=== PATIENT | male | born 1935 | race Caucasian/White ===

== ENCOUNTER 2019-03-18 12:59 | Emergency (ER) | payer MEDICARE ==
[~2019-03-18 12:59] MED LIST: Sodium Chloride 0.9% 1,000 ML BAG ONE
[2019-03-18] MEDS ORDERED: Ondansetron PF 4 MG/2 ML Vial ONE (13:35)
[2019-03-18] MEDS ORDERED: Sodium Chloride 0.9% 1,000 ML ONE ×2 (13:35→15:07)
[2019-03-18 13:49] LABS: ALT (SGPT) 102 U/L (8-55); AST (SGOT) 72 U/L (5-34); Albumin 3.6 g/dL (3.4-4.8); Alkaline Phosphatase 157 U/L (40-110); Anion Gap 19 mmol/L (10-20); BUN (Urea Nitrogen) 36 mg/dL (8.4-25.7); Bilirubin, Total 3.4 mg/dL (0.2-1.2); CK (CPK) 42 U/L (30-200); Calc. Creatinine Clearance 0 mL/min (70-130); Calcium 9.1 mg/dL (7.8-10.44); Carbon Dioxide 23 mmol/L (23-31); Chloride 97 mmol/L (98-107); Estimated GFR-MDRD 21; Globulin 2.3 g/dL (2.4-3.5); Glucose 201 mg/dL (83-110); Hemoglobin 14.3 g/dL (14.0-18.0); Lipase 45 U/L (8-78); Protein, Total 5.9 g/dL (5.8-8.1); Sodium 135 mmol/L (136-145); White Blood Cell (WBC) Count 14.6 thou/uL (4.8-10.8)
[2019-03-18 13:50] LABS: #Basophils 0.1 thou/uL (0.0-0.2); #Eosinphils 0.1 thou/uL (0.0-0.7); #Lymphocytes 1.5 thou/uL (1.20-3.40); #Monocytes 0.9 thou/uL (0.11-0.59); %Basophils 0.8 % (0.0-1.0); %Eosinophils 0.5 % (0.0-10.0); %Monocytes 6.5 % (0.0-10.0); %Neutrophils 82.3 % (42.0-75.0); Mean Corpuscular HGB CONC 30.8 g/dL (32.0-36.0); Mean Corpuscular Hemoglobin 26.9 pg (27.0-31.0); Mean Corpuscular Volume 87.3 fL (78.0-98.0); Mean Platelet Volume 10.7 fL (7.4-10.4); Platelet Count 196 thou/uL (130-400)
[2019-03-18 13:56] LABS: Phosphorus 4.1 mg/dL (2.3-4.7)
[2019-03-18 14:07] LABS: CKMB 4.4 ng/mL (0-6.6)
[2019-03-18 14:10] LABS: Schistocytes MODERATE= 6-15 cells (100X) (0-1/hpf)
[2019-03-18 14:11] LABS: Anisocytosis SLIGHT = 6-15 cells (100X) (0-5/hpf); Ovalocytes MODERATE= 6-15 cells (100X) (0-1/hpf); Platelet Morphology Comment Appears Adequate; Poikilocytosis MARKED = >30 cells (100X) (0-5/hpf)
[2019-03-18] MEDS ORDERED: Vancomycin HCl 500 MG VIAL ONE (14:11)
[2019-03-18] MEDS ORDERED: Vancomycin HCl 750 MG VIAL ONE (14:11)
[2019-03-18] MEDS ORDERED: Piperacillin/Tazobactam 4.5 GM VIAL ONE (14:11)
[2019-03-18] MEDS ORDERED: Sodium Chloride 0.9% 250 ML 250 ML ONE (14:11)
[2019-03-18] MEDS ORDERED: Sodium Chloride 0.9% 100 ML ONE (14:11)
--- NOTE | 2019-03-18 14:25 | CT ---
CT BRAIN WITHOUT CONTRAST: HISTORY:Altered mental status COMPARISON:None FINDINGS: There are foci of decreased attenuation in the periventricular white matter, consistent with chronic small vessel ischemic disease. Changes of cortical atrophy are present. No evidence of acute infarct, hemorrhage, midline shift or abnormal extra-axial fluid collections is seen. The ventricular size is appropriate and the basilar cisterns are patent. The bony calvarium is intact. The visualized paranasal sinuses and mastoid air cells are well aerated. There is a 4 cm extra-axial mass in the right frontal region, likely meningioma. Confirmation with co ntrast-enhanced MRI would be helpful. IMPRESSION: No CT evidence of acute intracranial process.
--- NOTE | 2019-03-18 14:29 | CT ---
CT Abdomen Pelvis WO Con: 03/18/2019 1:32 PM HISTORY: Weakness with nausea and vomiting COMPARISON: None. TECHNIQUE: Multiple contiguous axial images were obtained and a CT of the abdomen and pelvis without IV contrast . Coronal and sagittal reformats were performed. FINDINGS: This examination is limited for the evaluation of solid organs and vascular structures due to the lac k of intravenous contrast. Lower Chest: within normal limits. Abdomen: Liver: within normal limits. Bile Ducts: Normal caliber. Gallbladder: No calcified gallstones. Normal caliber wall. Pancreas: within normal limits. Spleen: within normal limits. Adrenals: within normal limits. Kidneys: 4.2 cm hyperdensity emanating from the right kidney may represent a hyperdense cyst. Pelvis: Reproductive Organs: No pelvic masses. Ureters: within normal limits. Bladder: within normal limits. Bowel: Normal caliber. Scattered diverticula in the colon. Mesenteric Lymph Nodes: No enlarged mesenteric lymph nodes. Peritoneum: Small volume ascites seen scattered throughout the abdomen. Vessels: Normal caliber aorta Retroperitoneum: within normal limits. Abdominal Wall: within normal limits. Bones: Degenerative changes in the spine. IMPRESSION: 1. Ascites 2. Diverticulosis 3. Nonspecific hyperdensity emanating from the right kidney may represent a hyperdense cyst. A renal mass cannot be excluded. A CT of the abdomen with contrast is recommended for further evaluation.
[2019-03-18] MEDS ORDERED: Aspirin Chewable 81 MG TAB ONE (14:30)
== END 2019-03-18 15:57 | disposition short-term general hospital (02) ==
LOC: MADERS 12:59
DX: A41.9 Sepsis, unspecified organism (principal); R65.20 Severe sepsis without septic shock; R11.10 Vomiting, unspecified; F03.90 Unspecified dementia, unspecified severity, without behavioral disturbance, psychotic disturbance, mood disturbance, and anxiety; N18.3 Chronic kidney disease, stage 3 (moderate); E11.22 Type 2 diabetes mellitus with diabetic chronic kidney disease; Z79.899 Other long term (current) drug therapy; Z79.82 Long term (current) use of aspirin
CPT/HCPCS: 36416; 70450; 74176; 80053; 82550; 82553; 83605; 83690; 83735; 84100; 84484; 85025; 93005; 96361; 96365; 96367; 96375; J2405; J2543; J3370; J3490; J7050

== ENCOUNTER 2019-04-01 12:25 | Outpatient (CLI) | payer MEDICARE ==
[2019-04-01 13:03] LABS: #Basophils 0.2 thou/uL (0.0-0.2); #Eosinphils 0.3 thou/uL (0.0-0.7); #Lymphocytes 1.8 thou/uL (1.20-3.40); #Neutrophils 6.8 thou/uL (1.40-6.50); %Basophils 1.5 % (0.0-1.0); %Eosinophils 2.6 % (0.0-10.0); %Lymphocytes 17.7 % (21.0-51.0); %Neutrophils 68.2 % (42.0-75.0); Anisocytosis SLIGHT = 6-15 cells (100X) (0-5/hpf); Hemoglobin 14.2 g/dL (14.0-18.0); MDiff Complete? YES; Mean Corpuscular HGB CONC 30.6 g/dL (32.0-36.0); Mean Corpuscular Hemoglobin 27.4 pg (27.0-31.0); Mean Corpuscular Volume 89.5 fL (78.0-98.0); Mean Platelet Volume 12.6 fL (7.4-10.4); Ovalocytes MODERATE= 6-15 cells (100X) (0-1/hpf); Platelet Count 161 thou/uL (130-400); Platelet Morphology Comment Appears Adequate; Poikilocytosis MARKED = >30 cells (100X) (0-5/hpf); RBC Distribution Width 16.5 % (11.5-14.5); Red Blood Cell (RBC) Count 5.16 mill/uL (4.70-6.10); Schistocytes SLIGHT = 2-5 cells (100X) (0-1/hpf); White Blood Cell (WBC) Count 9.9 thou/uL (4.8-10.8)
== END 2019-04-01 12:26 | disposition home or self-care (01) ==
LOC: MADLAB 12:25
PROVIDERS: ATTEND Family Medicine
DX: N18.3 Chronic kidney disease, stage 3 (moderate) (principal); F03.90 Unspecified dementia, unspecified severity, without behavioral disturbance, psychotic disturbance, mood disturbance, and anxiety; R29.6 Repeated falls; K57.90 Diverticulosis of intestine, part unspecified, without perforation or abscess without bleeding; M62.81 Muscle weakness (generalized); Z91.81 History of falling
CPT/HCPCS: 85025

== ENCOUNTER 2019-04-06 12:51 | Outpatient (CLI) | payer MEDICARE ==
[2019-04-06 13:13] LABS: ALT (SGPT) 51 U/L (8-55); AST (SGOT) 41 U/L (5-34); Albumin 3.1 g/dL (3.4-4.8); Alkaline Phosphatase 157 U/L (40-110); Anion Gap 19 mmol/L (10-20); BUN (Urea Nitrogen) 77 mg/dL (8.4-25.7); Bilirubin, Total 2.3 mg/dL (0.2-1.2); Calc. Creatinine Clearance 0 mL/min (70-130); Calcium 8.8 mg/dL (7.8-10.44); Carbon Dioxide 24 mmol/L (23-31); Chloride 99 mmol/L (98-107); Estimated GFR-MDRD 15; Globulin 2.5 g/dL (2.4-3.5); Glucose 133 mg/dL (83-110); Protein, Total 5.6 g/dL (5.8-8.1); Sodium 138 mmol/L (136-145)
== END 2019-04-06 12:52 | disposition home or self-care (01) ==
LOC: MADLAB 12:51
PROVIDERS: ATTEND Family Medicine
DX: N18.3 Chronic kidney disease, stage 3 (moderate) (principal)
CPT/HCPCS: 80053

== ENCOUNTER 2019-04-10 12:40 | Emergency (ER) | payer MEDICARE ==
[~2019-04-10 12:40] MED LIST changes: -Sodium Chloride 0.9% 1,000 ML BAG ONE; +Sodium Chloride 0.9% 100 ML BAG ONE; +Sodium Chloride 0.9% 500 ML BAG ONE
[2019-04-10 13:17] LABS: #Basophils 0.1 thou/uL (0.0-0.2); #Eosinphils 0.2 thou/uL (0.0-0.7); #Monocytes 0.9 thou/uL (0.11-0.59); #Neutrophils 7.9 thou/uL (1.40-6.50); %Basophils 0.7 % (0.0-1.0); %Eosinophils 1.6 % (0.0-10.0); %Lymphocytes 18.2 % (21.0-51.0); %Monocytes 8.3 % (0.0-10.0); %Neutrophils 71.2 % (42.0-75.0); Hemoglobin 16.1 g/dL (14.0-18.0); Mean Corpuscular HGB CONC 29.8 g/dL (32.0-36.0); Mean Corpuscular Hemoglobin 27.1 pg (27.0-31.0); Mean Platelet Volume 13.4 fL (7.4-10.4); Platelet Count 175 thou/uL (130-400); RBC Distribution Width 17.1 % (11.5-14.5); Red Blood Cell (RBC) Count 5.96 mill/uL (4.70-6.10)
[2019-04-10 13:34] LABS: ALT (SGPT) 39 U/L (8-55); AST (SGOT) 44 U/L (5-34); Albumin 3.2 g/dL (3.4-4.8); Alkaline Phosphatase 164 U/L (40-110); Anion Gap 19 mmol/L (10-20); BUN (Urea Nitrogen) 101 mg/dL (8.4-25.7); Calc. Creatinine Clearance 0 mL/min (70-130); Calcium 8.4 mg/dL (7.8-10.44); Carbon Dioxide 21 mmol/L (23-31); Chloride 96 mmol/L (98-107); Estimated GFR-MDRD 12; Globulin 2.9 g/dL (2.4-3.5); Glucose 191 mg/dL (83-110); Magnesium 2.6 mg/dL (1.6-2.6); Potassium 4.2 mmol/L (3.5-5.1); Protein, Total 6.1 g/dL (5.8-8.1); Sodium 132 mmol/L (136-145)
[2019-04-10] MEDS ORDERED: Cefepime 2 GM VIAL ONE (13:50)
[2019-04-10] MEDS ORDERED: Vancomycin 1.5 GRAM/300 ML BAG 1.5 GM/300 ML BAG ONE (14:19)
--- NOTE | 2019-04-13 08:28 | RAD ---
SINGLE VIEW OF CHEST: Date: 04/10/2019 COMPARISON: 03/18/2019. HISTORY: Hypotension and edema. FINDINGS: Single view of the chest shows a normal sized cardiomediastinal silhouette. There is no evidence of c onsolidation, mass, or pleural effusion. The bones are unremarkable. IMPRESSION: No evidence of acute cardiopulmonary disease. POS: TPC
== END 2019-04-10 14:51 | disposition short-term general hospital (02) ==
LOC: MADERS 12:40
DX: N17.9 Acute kidney failure, unspecified (principal); R79.89 Other specified abnormal findings of blood chemistry; E87.70 Fluid overload, unspecified; E11.22 Type 2 diabetes mellitus with diabetic chronic kidney disease; E87.1 Hypo-osmolality and hyponatremia; J45.909 Unspecified asthma, uncomplicated; F03.90 Unspecified dementia, unspecified severity, without behavioral disturbance, psychotic disturbance, mood disturbance, and anxiety; I12.9 Hypertensive chronic kidney disease with stage 1 through stage 4 chronic kidney disease, or unspecified chronic kidney disease; N18.3 Chronic kidney disease, stage 3 (moderate); Z79.82 Long term (current) use of aspirin; Z79.899 Other long term (current) drug therapy
CPT/HCPCS: 71045; 80053; 82553; 83605; 83735; 83880; 84443; 84484; 85025; 87040; 93005; 96365; 96367; J0692; J3490; J7050

== ENCOUNTER 2019-04-16 18:32 | Inpatient (IN) | payer MEDICARE ==
[2019-04-16] MEDS ORDERED: Senokot S 8.6-50 MG TAB PO PRN (21:08)
[2019-04-16] MEDS: Carvedilol 6.25 MG TAB PO SCH (21:47)
[2019-04-16] MEDS: Atorvastatin Calcium 40 MG TAB PO SCH (21:47)
[2019-04-16] MEDS: DorzolamidE/Timolol 2%/0.5% Ophth Soln 10 ml Bottle EA EYE SCH (23:18)
[2019-04-16] MEDS: Latanoprost 0.005% Ophth Soln 2.5 ml Bottle EA EYE SCH (23:19)
[2019-04-17] MEDS: glipiZIDE 5 MG TAB PO SCH (08:37)
[2019-04-17] MEDS ORDERED: FLU VACC TS2019-20(65YR UP)/PF 180 MCG/0.5 ML SYRINGE IM ONE (09:00)
[2019-04-17] MEDS: Clopidogrel Bisulfate 75 MG TAB PO SCH (09:38)
[2019-04-17] MEDS: Aspirin 81 mg Enteric Coated Tablet PO SCH (09:38)
[2019-04-17] MEDS: DorzolamidE/Timolol 2%/0.5% Ophth Soln 10 ml Bottle EA EYE SCH ×2 (09:38→20:50)
[2019-04-17] MEDS: Carvedilol 6.25 MG TAB PO SCH ×2 (09:38→20:50)
[2019-04-17] MEDS: levETIRAcetam 500 mg/5 ml Oral Solution PO SCH (09:39)
[2019-04-17 12:30] LABS: #Basophils 0.1 thou/uL (0.0-0.2); #Eosinphils 0.1 thou/uL (0.0-0.7); #Lymphocytes 1.4 thou/uL (1.20-3.40); #Monocytes 0.6 thou/uL (0.11-0.59); #Neutrophils 8.6 thou/uL (1.40-6.50); %Basophils 1.2 % (0.0-1.0); %Eosinophils 0.8 % (0.0-10.0); %Lymphocytes 12.7 % (21.0-51.0); %Monocytes 5.7 % (0.0-10.0); %Neutrophils 79.6 % (42.0-75.0); Hemoglobin 15.6 g/dL (14.0-18.0); Mean Corpuscular HGB CONC 29.2 g/dL (32.0-36.0); Mean Corpuscular Hemoglobin 26.9 pg (27.0-31.0); Mean Corpuscular Volume 92.2 fL (78.0-98.0); Mean Platelet Volume 15.6 fL (7.4-10.4); Platelet Count 176 thou/uL (130-400); RBC Distribution Width 17.2 % (11.5-14.5); White Blood Cell (WBC) Count 10.8 thou/uL (4.8-10.8)
[2019-04-17 12:46] LABS: ALT (SGPT) 51 U/L (8-55); AST (SGOT) 41 U/L (5-34); Alkaline Phosphatase 170 U/L (40-110); Anion Gap 14 mmol/L (10-20); BUN (Urea Nitrogen) 90 mg/dL (8.4-25.7); Bilirubin, Total 1.6 mg/dL (0.2-1.2); Calc. Creatinine Clearance 27 mL/min (70-130); Calcium 8.5 mg/dL (7.8-10.44); Carbon Dioxide 22 mmol/L (23-31); Chloride 103 mmol/L (98-107); Estimated GFR-MDRD 22; Glucose 359 mg/dL (83-110); Potassium 4.3 mmol/L (3.5-5.1); Sodium 135 mmol/L (136-145)
[2019-04-17] MEDS ORDERED: HumaLOG 300 UNITS/3 ML VIAL SC PRN (12:46)
[2019-04-17] MEDS ORDERED: Dextrose 50% Abboject 50 ML SYRINGE IVP PRN (12:46)
[2019-04-17] MEDS ORDERED: Dextrose 5% in Water 1,000 ML IV PRN (12:46)
[2019-04-17] MEDS: Ondansetron ODT 4 MG TAB PO PRN (17:08)
[2019-04-17] MEDS: Atorvastatin Calcium 40 MG TAB PO SCH (20:50)
[2019-04-17] MEDS: Latanoprost 0.005% Ophth Soln 2.5 ml Bottle EA EYE SCH (20:51)
--- NOTE | 2019-04-18 01:47 | HP ---
PRIMARY CARE PHYSICIAN: BARB Waddell in [facility]. REASON FOR ADMISSION: Skilled rehab in [facility] after recent hospitalization. HISTORY OF PRESENT ILLNESS AND COURSE: Mr. Hyatt is an 83-year-old male who was recently admitted at [facility] on 04/10/2019 and was discharged on 04/16/2019 secondary to acute metabolic encephalopathy, deemed to be secondary to acute chronic stage IV renal failure and hyponatremia. He was initially treated with antibiotics and that were subsequently discontinued. HIDA scan was consistent with chronic cholecystitis; however, the patient did not have any symptoms for this including abdominal pain or tenderness. So after discussion with the asset specialist, they gave the opinion that no surgical intervention was needed at that point. During this hospitalization, the patient was also seen by Nephrology Service who treated the patient with IV fluids and nephrotoxic medications were withheld. Creatinine slowly returned to baseline. His 2D echo could not assess ejection fraction, so he went into MUGA scan which showed that his ventricular ejection fraction of 54%. The patient was also seen by Urology Service, wherein renal ultrasound was done, showing a mass in the right kidney measuring 4 x 4 x 2.6 cm. Urology Service recommended further outpatient followup and observation for now. After the patient was stabilized in the hospital, he was transferred to [facility] on 04/16/2019 for purposes of skilled rehab. The patient had a smooth overnight course. When seen this morning, staff reports that the patient's sugar was in the 300 range premeal. The patient was reported to be very weak and lethargic. He was easily alert and awake and will talk with appropriateness with them; however, he refuses to eat. The patient has history of diabetes which per records is well controlled with oral hypoglycemic agent. He is on glipizide 5 mg daily only. The patient was further observed throughout the day, and he remained to be sleepy the whole day. He is easily arousable, but he continued not eating. His pre-lunch sugar remains elevated at 311. The patient was started on insulin sliding scale coverage. When patient's came in,she tried to force the patient to eat. After one bite of solid food, the patient vomited.Vomiting improved with antiemetic. Speech was consulted, who reports that the patient has significant difficulty of swallowing, recommending to downgrade to pureed diet and continued nectar thickened liquid. This was discussed by the speech therapist with the who reported that the patient's advanced directives not to include alternative form of nutrition as the patient would wish oral intake even if aspiration risks associated. Per Speech conversation with the , would like to continue current diet of regular nectar textures and not to downgrade to pureed even if aspiration risk is increased. The patient was likewise evaluated by PT today, but was unable to treat secondary to being so lethargic. PAST MEDICAL HISTORY: 1. Newly diagnosed with seizure in December 2018. Started on Keppra 500 mg p.o. b.i.d. that was recently withheld by a week prior to this recent hospitalization, secondary to reported drowsiness and sleepiness. The patient was started on Keppra 250 mg daily during this recent hospitalization. 2. Diabetes, type 2. 3. Nonspecific dementia. 4. Glaucoma. 5. Cataract. 6. Chronic kidney disease, stage 3. 7. Asthma. 8. He has a history of nonspecific dementia, and he has history of brain meningioma. PAST SURGICAL HISTORY: Cardiac stents x2, hernia repair, tonsillectomy, cataract surgery, and skin lesion removed. SOCIAL HISTORY: The patient is . They live in [place]. There was no history of alcohol use, drug use, or tobacco use. ALLERGIES: NO KNOWN DRUG ALLERGIES. CURRENT MEDICATIONS: 1. Aspirin 81 mg p.o. daily. 2. Atorvastatin 40 mg p.o. at bedtime. 3. Carvedilol 6.25 mg p.o. b.i.d. 4. Clopidogrel 75 mg p.o. daily. 5. Keppra 250 mg p.o. daily. 6. Sennoside two tablets p.o. b.i.d. p.r.n. REVIEW OF SYSTEMS: Limited, unobtainable secondary to the patient's current mental state. PHYSICAL EXAMINATION: VITAL SIGNS: Blood pressure 123/87, temperature 96.9, respirations 18, pulse 77 , and O2 saturation is 95% room air. Weight 205 pounds and 12 ounces. Height 5 feet 7 inches. GENERAL: The patient is asleep, easily arousable, able to open his eyes spontaneously, able to say his name and age. He knows he is in the hospital, but he easily goes back to sleep. HEENT: Normocephalic, atraumatic. PERRL. Intact EOM. Anicteric sclerae. Oral mucosa is moist. Tongue in the midline. No tremors. NECK: Supple. No LAD. No JVD. No bruit. CHEST: Normal excursion. Clear to auscultation bilaterally. CARDIAC: RRR. Normal S1 and S2. ABDOMEN: Flat, soft. Normoactive bowel sounds. Nondistended, nontender. No rebound or guarding. Negative tenderness bilaterally. EXTREMITIES: Positive 2+ nonpitting bipedal edema up to thighs. Negative calf tenderness. No cyanosis. NEUROLOGIC: Moves all extremities symmetrically. Lethargic. Spontaneous speech. Other neuro exam was not assessed as the patient easily goes back to sleep. ASSESSMENT AND PLAN: This is an 83-year-old with chronic multiple medical conditions including hypertension, diabetes type 2, [id number] chronic kidney disease stage 3, newly-diagnosed seizures, and nonspecific dementia. The patient was recently admitted to the hospital for sepsis which was treated with antibiotic, complicated with hyponatremia and acute metabolic encephalopathy secondary to acute kidney injury. Here in [place] swing bed for deconditioning, general weakness, and unsteady gait. The patient is now refusing to eat with acute vomiting when solid was introduced by . Physical Therapy and Occupational Therapy are unable to treat secondary to current mental status. Speech Therapy found significant swallowing issues that placed increased risk of the patient's aspiration. The patient is DNAR based on records and is confirmed by . Lengthy discussion with the patient's , Dayanna Hyatt, today and discussed the above findings and the overall patient's clinical status and prognosis. The patient's is well aware of current condition and poor snf prognosis. The patient's is well aware that the patient may not be able to continue current therapy in skilled unit secondary to current mental status. His nutritional status is poor and at risk for dehydration, possible recurrence of acute kidney injury, superimposing chronic kidney disease. The patient's once again confirmed that they do not want alternatives for feedings including PEG tube placement. The patient's confirmed the patient's DNAR status and does not want to be aggressive at this point. We discussed about IV fluid hydration, but may not last longer secondary to possible worsening third spacing. At this point, the patient's wanted no further aggressive interventions, but we will continue to closely monitor the patient within the next 24 to 48 hours. If there is no significant improvement with overall nutritional status and mental status, is considering palliative care/hospice care at home versus terminal care in SNF. reports that she has been thinking about this in a long time since the patient started having decline from the time that the patient was diagnosed with a seizure in December and led to hospitalization in March. At this point, we will hold insulin sliding scale tonight secondary to no oral intake since this morning. The patient voided only once during day shift. The patient's is comfortable at this point with the above plan of care. Further recommendations depending on the hospital course. Job ID: [id number] MTDD
[2019-04-18] MEDS: Carvedilol 6.25 MG TAB PO SCH ×2 (08:28→20:59)
[2019-04-18] MEDS: Aspirin 81 mg Enteric Coated Tablet PO SCH (08:28)
[2019-04-18] MEDS: levETIRAcetam 500 mg/5 ml Oral Solution PO SCH (08:28)
[2019-04-18] MEDS: Clopidogrel Bisulfate 75 MG TAB PO SCH (08:28)
[2019-04-18] MEDS: glipiZIDE 5 MG TAB PO SCH (08:28)
[2019-04-18] MEDS: DorzolamidE/Timolol 2%/0.5% Ophth Soln 10 ml Bottle EA EYE SCH ×2 (08:29→20:58)
[2019-04-18] MEDS: Ondansetron ODT 4 MG TAB PO PRN (08:49)
[2019-04-18] MEDS: Latanoprost 0.005% Ophth Soln 2.5 ml Bottle EA EYE SCH (20:58)
[2019-04-18] MEDS: Atorvastatin Calcium 40 MG TAB PO SCH (20:59)
[2019-04-19 04:08] LABS: Bilirubin Negative (Negative); Blood, Urine Trace (Negative); Clarity Clear (Clear); Glucose, Urine (Dipstick) Negative (Negative); Leukocyte Negative (Negative); Nitrite Negative (Negative); Protein, Urine (Dipstick) 100 mg/dL (Neg-Trace); Urobilinogen 0.2 mg/dL (Less than 2)
[2019-04-19 04:15] LABS: RBC/HPF 0-3 HPF (0-3); Squamous Epithelial 0-3 HPF (0-3); Urine Culture Reflex No No; WBC/HPF 0-3 HPF (0-3)
[2019-04-19 04:16] LABS: Bacteria/HPF Rare-Few HPF (None Seen)
[2019-04-19] MEDS: glipiZIDE 5 MG TAB PO SCH ×2 (09:14→09:30)
[2019-04-19] MEDS: Aspirin 81 mg Enteric Coated Tablet PO SCH (09:14)
[2019-04-19] MEDS: Carvedilol 6.25 MG TAB PO SCH ×2 (09:14→21:03)
[2019-04-19] MEDS: Clopidogrel Bisulfate 75 MG TAB PO SCH (09:15)
[2019-04-19] MEDS: DorzolamidE/Timolol 2%/0.5% Ophth Soln 10 ml Bottle EA EYE SCH ×2 (09:15→21:06)
[2019-04-19] MEDS: levETIRAcetam 500 mg/5 ml Oral Solution PO SCH (09:15)
[2019-04-19] MEDS: Atorvastatin Calcium 40 MG TAB PO SCH (21:02)
[2019-04-19] MEDS: Latanoprost 0.005% Ophth Soln 2.5 ml Bottle EA EYE SCH (21:05)
[2019-04-20] MEDS: Carvedilol 6.25 MG TAB PO SCH ×2 (08:42→21:18)
[2019-04-20] MEDS: DorzolamidE/Timolol 2%/0.5% Ophth Soln 10 ml Bottle EA EYE SCH ×2 (08:42→21:19)
[2019-04-20] MEDS: glipiZIDE 5 MG TAB PO SCH (08:42)
[2019-04-20] MEDS: levETIRAcetam 500 mg/5 ml Oral Solution PO SCH (08:42)
[2019-04-20] MEDS: Clopidogrel Bisulfate 75 MG TAB PO SCH (08:42)
[2019-04-20] MEDS: Aspirin 81 mg Enteric Coated Tablet PO SCH (08:42)
[2019-04-20 13:35] VITALS: BMI 32.8
[2019-04-20] MEDS: Atorvastatin Calcium 40 MG TAB PO SCH (21:18)
[2019-04-20] MEDS: Latanoprost 0.005% Ophth Soln 2.5 ml Bottle EA EYE SCH (21:19)
[2019-04-21] MEDS: glipiZIDE 5 MG TAB PO SCH (08:55)
[2019-04-21] MEDS: levETIRAcetam 500 mg/5 ml Oral Solution PO SCH (08:55)
[2019-04-21] MEDS: Clopidogrel Bisulfate 75 MG TAB PO SCH (08:55)
[2019-04-21] MEDS: Carvedilol 6.25 MG TAB PO SCH (08:55)
[2019-04-21] MEDS: DorzolamidE/Timolol 2%/0.5% Ophth Soln 10 ml Bottle EA EYE SCH (08:55)
[2019-04-21] MEDS: Aspirin 81 mg Enteric Coated Tablet PO SCH (08:55)
[2019-04-21 09:05] VITALS: BP 111/74; TEMP 96.5
--- NOTE | 2019-04-22 00:49 | DIS ---
DATE OF ADMISSION: 04/16/2019 DATE OF DISCHARGE: 04/21/2019 PRIMARY CARE PHYSICIAN: Elana Burk in [facility]. REASON FOR ADMISSION: Skilled rehab in [facility] after recent hospitalization. FINAL DIAGNOSES: 1. Acute metabolic encephalopathy. 2. Severe debility secondary to general weakness. 3. Seizure disorder. 4. Diabetes type 2 with hyperglycemia. 5. Ynpxq-rk-hhrpfdx kidney disease, stage III. 6. Malnutrition. 7. Dehydration. 8. Urinary retention. 9. Nonspecific dementia. 10. Abnormality of gait. DISPOSITION: Home with per request. CONDITION ON DISCHARGE: Poor long-term prognosis. MEDICATIONS: 1. Keppra 250 mg p.o. daily. 2. Latanoprost 1 drop each eye at bedtime. 3. Dorzolamide 1 drop each eye b.i.d. 4. Ondansetron 4 mg q.4 hours p.r.n. 5. Sennosides 2 tablets p.o. b.i.d. p.r.n. 6. Dulcolax suppository 10 mg per rectum p.o. daily p.r.n. 7. Tylenol 650 mg per rectum q.6 hours p.r.n. DIET: 1. Pleasure feeding, highly recommended pureed and nectar thickened. 2. Aspiration precautions next. 3. Fall precautions. DISPOSITION: Discharge home with for palliative care with hospice. CODE STATUS: Do not resuscitate. HISTORY OF THE PRESENT ILLNESS AND HOSPITAL COURSE: Mr. Hyatt is an 83-year-old male with multiple chronic medical conditions including diabetes type 2, CAD, nonspecific dementia, glaucoma, chronic kidney disease stage 3, asthma and history of brain meningioma. The patient was recently diagnosed with seizure in December of 2018 and was started on Keppra. Since then, the patient has been to the hospital more frequently. The last hospitalization was in [facility] on 04/10/2019 secondary to acute metabolic encephalopathy, deemed to be secondary to acute chronic stage IV renal failure and hyponatremia. Further evaluation of the patient showed HIDA scan, chronic cholecystitis. A 2D echo could not assist ejection fraction, so he went into MUGA scan, which showed that his ventricular ejection fraction was 54%. Renal ultrasound showed a mass in the right kidney measuring 4 x 4 x 2.6 cm. The patient was initially treated with antibiotic for empiric treatment that was subsequently discontinued. He was asymptomatic for cholecystitis thus there was no surgical intervention recommended per general surgeon at that point. Urologist likewise recommended outpatient followup and observation for the renal mass. The patient was clinically stabilized in the hospital with supportive medical management. He was then transferred to [facility] on 04/16/2019 for skilled rehab. The patient did remain very lethargic during his rehab course. reports that since patient was diagnosed with seizure disorder in December, she noticed on and off lethargy at home. She thought Keppra 500 mg p.o. b.i.d. is making it worse. At some point, discontinued Keppra for a week prior to this recent hospitalization. Per Keppra was then started back during this recent hospitalization, but was started on a low dose at 250 mg p.o. daily. The patient did not do well on initial therapy evaluation, as he was not cooperative and wanted to stay in bed for the most part. He was also noted to have significant choking and coughing spell even with p.o. intake. Speech recommended pureed diet and nectar thickened liquids secondary to evidence of oropharyngeal aspiration. This was discussed with . declined alternative for feeding including PEG tube placement. wanted to continue regular diet despite of the recommendation with known high risk for aspiration. At one point, when tried to feed the patient with solid food, the patient vomited and decline to eat since. The patient continued to sleep for the most part. He is easily awakened by verbal stimuli and would answer simple questions with appropriateness. Over the 3 day course in rehab, the patient continued to have poor oral intake as he continued to decline eating or drinking at times. He has no good urine output and also developed urinary retention requiring Wallace catheter insertion. The patient was also noted to have worsening volume retention, mostly on the lower legs that has spread out to his scrotum. Lengthy discussion with the patient's regarding the patient's clinical status, progressive decline and development of 3rd spacing on top of dehydration and malnutrition. Since patient is not cooperative and deemed not a good candidate for rehab, palliative care with hospice was discussed. After discussed with the patient, the rest of their family was all in agreement to be in hospice care. Prior to discharge, this was discussed by the to the patient and the patient verbalizes to the staff and to the that he wants to go home and he wants to be comfortable at home "to see Valente." Thus patient was referred to the medical social worker and hospice care was arranged. The patient was referred to [facility] per 's preference. On 04/21/2019, the patient was discharged home with as the primary managed care specialist. PHYSICAL EXAMINATION: VITAL SIGNS: Prior to discharge; blood pressure 133/93, temp 97, pulse 94, respirations 16, O2 sats 97%, weight 211 pounds and 6 ounces, height 5 feet 7 inches. Time spent on this discharge 35 minutes in examining the patient and coordinating care. Job ID: [id number]
== END 2019-04-21 13:45 | disposition hospice, home (50) | DRG 947 ==
LOC: MADMS 18:32
PROVIDERS: ADMIT Family Medicine; ATTEND Family Medicine
DX: R53.1 Weakness (principal); G93.41 Metabolic encephalopathy; N17.9 Acute kidney failure, unspecified; E46 Unspecified protein-calorie malnutrition; E87.1 Hypo-osmolality and hyponatremia; R53.81 Other malaise; G40.909 Epilepsy, unspecified, not intractable, without status epilepticus; E11.65 Type 2 diabetes mellitus with hyperglycemia; E11.22 Type 2 diabetes mellitus with diabetic chronic kidney disease; Z66 Do not resuscitate; Z51.5 Encounter for palliative care; N18.3 Chronic kidney disease, stage 3 (moderate); J45.909 Unspecified asthma, uncomplicated; I25.10 Atherosclerotic heart disease of native coronary artery without angina pectoris; F03.90 Unspecified dementia, unspecified severity, without behavioral disturbance, psychotic disturbance, mood disturbance, and anxiety; R26.9 Unspecified abnormalities of gait and mobility; K81.1 Chronic cholecystitis; I12.9 Hypertensive chronic kidney disease with stage 1 through stage 4 chronic kidney disease, or unspecified chronic kidney disease; R33.9 Retention of urine, unspecified; E86.0 Dehydration; Z79.4 Long term (current) use of insulin; Z95.5 Presence of coronary angioplasty implant and graft; Z98.49 Cataract extraction status, unspecified eye; R26.81 Unsteadiness on feet
CPT/HCPCS: 36416; 80053; 80177; 81001; 85025; 87086; 36415-59; Q0162